=== PATIENT | male | born 1965 | race Caucasian/White ===

== ENCOUNTER 2018-02-21 20:07 | Emergency (ER) | payer OTHER ==
[~2018-02-21] VITALS: Ht 177.8 cm; Wt 113.4 kg
[2018-02-21 20:48] VITALS: BP 146/82
--- NOTE | 2018-02-21 21:34 | ED ANKLE/FOOT INJURY COMPLAINT ---
History of Present Illness General Chief Complaint: Foot or Ankle Injury Stated Complaint: PT POSSIBLE CELLULITIS INTHE LT BIG TOE Source: patient Exam Limitations: no limitations Vital Signs & Intake/Output Vital Signs & Intake/Output Vital Signs Date Time Temp Pulse Resp B/P B/P Pulse O2 O2 Flow FiO2 Mean Ox Delivery Rate 02/22 2048 99.2 92 18 146/82 96 Room Air Allergies Coded Allergies: Penicillins (RASH 02/21/18) Reconcile Medications Colchicine 0.6 MG CAPSULE 1 TAB PO DAILY GOUT TAKE 2 TABS IMMEDIATELY, THEN 1 TAB 1 HOUR LATER. Indomethacin 50 MG CAPSULE 1 CAP PO TID PRN pain/inflammation with food Triage Note: PT PRESENTS TO THE ER C/O FOOT PAIN LEFT BIG TOE. PT STATES THAT HE HAS BEEN WORKING A LOT OUTSIDE AND HIS TOE STARTED TO HURT. PT WAS SEEN WALK IN AND PT WAS PUT ON ANTIBIOTICS..NO SIGNS OF TRAUMA TO TOE. TOE IS RED AND SWOLLEN AND REDNESS IS SPREADING TO FOOT AND OTHER TOES. PT STATES THAT HE HAS HAD LOW GRADE FEVER AND CHILLS. PT STATES THIS STARTED YESTERDAY Triage Nurses Notes Reviewed? yes Occurred: yesterday Duration: day(s): (2) Timing: no prior history Severity: moderate Severity Numbers: 5 Pain/Injury Location: Left: 1st toe. Method of Injury: unknown Modifying Factors: Improves With: immobilization. Worsens With: movement. HPI: Patient is a 52-year-old male presenting to the emergency Department chief complaint left toe redness and pain that began a day and half ago. Patient reports he's had associated chills. Denies any known injury but reports he's been working with work boots which she doesn't typically wear. Denies any cuts. Denies numbness or tingling. He does take prophylactic medication for gout but never had a flareup. No nausea or vomiting. Pain is moderate achy and throbbing. (Yenifer Barragan) Past History Travel History Traveled to [place] past 21 day No Medical History Any Pertinent Medical History? see below for history Surgical History Surgical History: non-contributory Psychosocial History What is your primary language Burmese Tobacco Use: Never used Family History Hx Contributory? No (Yenifer Barragan) Review of Systems Review of Systems Constitutional: Reports: chills. Comments Review of systems: See HPI, All other systems negative. Constitutional, no fever or weight loss HEENT: No visual changes no sore throat no congestion Cardiovascular: No chest pain ,palpitation Skin, no jaundice Respiratory: No dyspnea cough sputum GI: No nausea no vomiting Muscle skeletal: no back pain, no neck pain, Neurologic: No numbness no confusion Psych: No stress anxiety or depression,. Heme/endocrine: No bruising no bleeding no polyuria or polydipsia Immunology: No splenectomy or history of AIDS (Yenifer Barragan) Physical Exam Physical Exam General Appearance: well developed/nourished, no apparent distress, alert, awake , comfortable Leg/Knee/Thigh Left: swelling, tenderness, limited range of motion Comments: Well-developed well-nourished person in no acute distress HEENT: Atraumatic, normocephalic Neck: Normal inspection Cardiovascular: Pulses are 2+ bilaterally. Respiratory: No respiratory distress. Extremity: Mild edema noted of the left great toe, erythema extending to the base of the left great toe. Moderately tender to palpation. No fluctuance. This area is warm to the touch. Neuro: Alert oriented x3, motor sensory normal Skin: See extremity exam, otherwise skin unremarkable exposed areas. Psych: Mood and affect is normal, memory and judgment is normal. (Yenifer Barragan) Progress Differential Diagnosis: cellulitis, gout, sprain, contusion Plan of Care: Patient treated for cellulitis. Cannot exclude gout. Patient also treated for gout. Patient follow-up with primary care physician and return for any worsening symptoms of redness spreads or if patient develops fevers. Patient is not a diabetic. (Yenifer Barragan) Departure Departure Time of Disposition: 2140 Disposition: HOME OR SELF CARE Condition: Stable Clinical Impression Primary Impression: Cellulitis Qualifiers: Site of cellulitis: extremity Site of cellulitis of extremity: lower extremity Laterality: left Qualified Code: L03.116 - Cellulitis of left lower limb Referrals: Shamar CATALAN,Jorge Andres MD,Isiah Sam (PCP/Family) Additional Instructions: Follow-up with podiatry, call tomorrow to make an appointment. Continue previously prescribed antibiotics as directed. Take indomethacin as prescribed to help with pain and swelling. You can continue taking previous prescribed Dilaudid for severe pain. Return for worsening symptoms or concerns. Departure Forms: Customer Survey General Discharge Information Prescriptions: Current Visit Scripts Indomethacin 1 CAP PO TID PRN pain/inflammation #30 CAP with food Colchicine 1 TAB PO DAILY #3 TAB TAKE 2 TABS IMMEDIATELY, THEN 1 TAB 1 HOUR LATER. (Yenifer Barragan) PA/UNMANNED EQUIPMENT OPERATOR Co-Sign Statement Statement: ED Attending supervision documentation- [] I saw and evaluated the patient. I have also reviewed all the pertinent lab results and diagnostic results. I agree with the findings and the plan of care as documented in the PA's/UNMANNED EQUIPMENT OPERATOR's documentation. [X] I have reviewed the ED Record and agree with the PA's/UNMANNED EQUIPMENT OPERATOR's documentation. [] Additions or exceptions (if any) to the PAs/UNMANNED EQUIPMENT OPERATOR's note and plan are summarized below: [] (Arnoldo BOCANEGRA,Boris Bridges) ED Attending Observation Initial Observation Note: I have seen and personally examined HERMILA CASTLE on 02/23/18 at 1059. I agree with the current emergency department documentation. The disposition (admission or discharge) is uncertain at this time, he needs a period of observation for the following reason(s): The ED Nurse caring for this patient has been personally informed as to what the patient is being observed for. (Yenifer Barragan)
[2018-02-21] MEDS ORDERED: COLCHICINE0.6 M3 PO (21:45)
[2018-02-21] MEDS ORDERED: INDOMETHACIN50 M1 PO (21:45)
== END 2018-02-21 21:52 ==
LOC: ERH 20:07
DX: L03.032 Cellulitis of left toe (principal)